=== PATIENT | female | born 1955 | race Caucasian/White ===

== ENCOUNTER → 2018-06-18 08:19 | Outpatient (CLI) | payer OTHER | END | disposition home or self-care (01) | LOC: LAB 08:06 | DX: E11.9 Type 2 diabetes mellitus without complications (principal); E03.8 Other specified hypothyroidism; E78.2 Mixed hyperlipidemia; M81.0 Age-related osteoporosis without current pathological fracture; I10 Essential (primary) hypertension ==

== ENCOUNTER → 2018-06-18 | Outpatient (CLI) | payer OTHER | END | disposition home or self-care (01) | LOC: MAMO-SONO 06-02 13:15 → RAD 13:15 | DX: M19.90 Unspecified osteoarthritis, unspecified site (principal); M46.47 Discitis, unspecified, lumbosacral region; Z12.31 Encounter for screening mammogram for malignant neoplasm of breast; N60.11 Diffuse cystic mastopathy of right breast; N60.12 Diffuse cystic mastopathy of left breast ==

== ENCOUNTER 2018-06-30 13:23 | Outpatient (CLI) | payer OTHER | END 2018-06-30 13:47 | disposition home or self-care (01) | LOC: NUCLEAR 13:23 | DX: M81.0 Age-related osteoporosis without current pathological fracture (principal) ==

== ENCOUNTER 2018-07-23 13:42 | Emergency (ER) | payer OTHER ==
[~2018-07-23] VITALS: Ht 160 cm; Wt 65.8 kg
[2018-07-23] MEDS ORDERED: COZAAR100 MG (14:29)
[2018-07-23] MEDS ORDERED: AMLODIPINE BESY10 MG (14:30)
== END 2018-07-23 17:35 | disposition home or self-care (01) ==
LOC: ER 13:42
DX: L02.413 Cutaneous abscess of right upper limb (principal); M79.621 Pain in right upper arm

== ENCOUNTER 2020-09-14 08:46 | Outpatient (CLI) | payer OTHER ==
[~2020-09-14 08:46] MED LIST: AMLODIPINE BESY10 MG; COZAAR100 MG
== END 2020-09-14 08:55 | disposition home or self-care (01) ==
LOC: SONOGRAMA 08:46 → MAMO-SONO 09:15
PROVIDERS: ATTEND Internal Medicine Cardiovascular Disease
DX: R10.84 Generalized abdominal pain (principal)